=== PATIENT | female | born 1990 | race Caucasian/White ===

== ENCOUNTER 2020-02-12 09:09 | Inpatient (IN) | payer BC ==
[2020-02-18] MEDS ORDERED: Ibuprofen 800 MG TAB PO PRN (20:10)
[2020-02-18] MEDS ORDERED: Diphenoxylate HCl/Atropine Tablet PO PRN (20:10)
[2020-02-18] MEDS ORDERED: Lidocaine 1% (PF) 30 ML VIAL SC PRN (20:10)
[2020-02-18] MEDS ORDERED: Carboprost 250 MCG/ML AMP IM PRN (20:10)
[2020-02-18] MEDS ORDERED: HYDROcodone/Acetaminophen 5/325 mg Tablet PO PRN (20:10)
[2020-02-18] MEDS ORDERED: Ondansetron PF 4 MG/2 ML Vial IVP PRN (20:10)
[2020-02-18] MEDS ORDERED: Methylergonovine 0.2 MG/ML VIAL IM PRN (20:10)
[2020-02-18] MEDS ORDERED: Acetaminophen 500 MG TAB PO PRN (20:10)
[2020-02-18] MEDS ORDERED: NS / Oxytocin 40 units/1000ml 1,000 ML IV PRN (20:10)
[2020-02-18] MEDS ORDERED: Misoprostol 200 MCG TAB PR PRN (20:10)
[2020-02-18] MEDS ORDERED: Promethazine HCl 25 MG/ML VIAL IM PRN (20:10)
[2020-02-18] MEDS ORDERED: Butorphanol Tartrate 1 MG/ML VIAL SLOW IVP PRN (20:10)
[2020-02-18] MEDS ORDERED: hydrALAZINE 20 MG/ML VIAL SLOW IVP PRN (20:10)
[2020-02-18] MEDS ORDERED: NS w/ Oxytocin 10 units 500 ML IV SCH (20:15)
[2020-02-18 21:22] VITALS: BMI 36.8
[2020-02-18] MEDS: Lactated Ringer's 1,000 ML IV SCH (21:53)
[2020-02-18] MEDS: Misoprostol 100 MCG TAB VAG SCH (21:54)
[2020-02-18 22:02] LABS: Mean Corpuscular HGB CONC 35.1 g/dL (32.0-36.0); Mean Corpuscular Hemoglobin 32.4 pg (27.0-31.0); Mean Corpuscular Volume 92.2 fL (78.0-98.0); Mean Platelet Volume 10.6 fL (7.4-10.4); Platelet Count 147 thou/uL (130-400); RBC Distribution Width 12.6 % (11.5-14.5); Red Blood Cell (RBC) Count 4.02 mill/uL (4.20-5.40); White Blood Cell (WBC) Count 10.5 thou/uL (4.8-10.8)
[2020-02-18 22:40] LABS: HBSAg Index 0.15 S/CO (0-0.99); Hep B Surf Ag Non-Reactive S/CO (NonReactive); Syphilis Antibody Nonreactive (Nonreactive); Syphilis Antibody Index 0.03 S/CO (<1.00 Non-Reactive)
[2020-02-19] MEDS: Misoprostol 100 MCG TAB VAG SCH ×3 (01:43→18:47)
[2020-02-19] MEDS: Lactated Ringer's 1,000 ML IV SCH ×2 (01:43→12:21)
--- NOTE | 2020-02-19 08:27 | PDOC.LDHP ---
Labor and Delivery H&P Chief complaint: scheduled induction HPI: 29yo at 41w0d by LMP here for postdate IOL. Current gestational age (weeks): 41 Due date: 02/12/20 Dating criteria: last menstrual period Grav: 1 Para: 0 Current complications: none Abnormal US findings: No Past Medical History: denies Current medications: pre- vitamins Previous surgical history: none Allergies/Adverse Reactions: Allergies Allergy/AdvReac Type Severity Reaction Status Date / Time No Known Allergies Allergy Verified 02/18/20 21:11 Social history: none - Physical Exam Vital signs reviewed and normal: yes General: NAD Heart: RRR Lungs: CTAB Abdomen: gravid Extremeties: no edema FHT: category 1 [place] contractions every: 2-4min - Vaginal Exam cm dilated: 3 Effacement: 75% Station: -2 (arom clear) - OB Labs Blood type: A RH: positive Antibody Screen: negative HIV: negative RPR: negative HEPSAg: negative 1 hour GCT: negative GBS: negative Urine drug screen: negative Rubella: immune - Assessment L&D Assessment: medically indicated induction - Plan Plan: admit to L&D, cervical ripening, labor augmentation if indicated, informed consent obtained, anesthesia consult for pain management
[2020-02-19] MEDS ORDERED: NS / Oxytocin 40 units/1000ml 1,000 ML ONE (15:34)
[2020-02-19] MEDS ORDERED: Lidocaine 1% (PF) 30 ML VIAL ONE (15:34)
--- NOTE | 2020-02-19 19:00 | PDOC.OPDEL ---
OB Operative/Delivery Note Delivery Dr/Surgeon: Yakelin Assist: n/a Pre-Delivery Diagnosis: medically indicated induction Procedure/Post Delivery Dx: spontaneous vaginal delivery Weeks gestation: 41 Anesthesia: local - Findings A Sex: male - Additional Findings/Plan Placenta delivered: spontaneous Repaired Obstetrical Laceration: 2nd degree Estimated blood loss: 400cc Compilations/Other Findings: NC x 1 reduced Post delivery plan: routine recovery
[2020-02-19] MEDS ORDERED: Milk Of Magnesia 30 ML UDCUP PO PRN (19:27)
[2020-02-19] MEDS ORDERED: HYDROcodone/Acetaminophen 5/325 mg Tablet PO PRN ×2 (19:27)
[2020-02-19] MEDS ORDERED: NS / Oxytocin 40 units/1000ml 1,000 ML IV SCH (19:27)
[2020-02-19] MEDS ORDERED: Benzocaine-Menthol 82.5 ML CAN TOP PRN (19:27)
[2020-02-19] MEDS ORDERED: Lanolin Ointment 7 GM TUBE TOP PRN (19:27)
[2020-02-19] MEDS ORDERED: Preparation H Ointment 28 GM TUBE PR PRN (19:27)
[2020-02-19] MEDS ORDERED: Ondansetron PF 4 MG/2 ML Vial IVP PRN (19:27)
[2020-02-19] MEDS ORDERED: hydrALAZINE 20 MG/ML VIAL SLOW IVP PRN (19:27)
[2020-02-19] MEDS ORDERED: Bisacodyl 10 MG SUPP PR PRN (19:27)
[2020-02-19] MEDS ORDERED: diphenhydrAMINE 25 MG CAP PO PRN (19:27)
[2020-02-19] MEDS: Ibuprofen 800 MG TAB PO SCH (21:20)
[2020-02-19] MEDS: Docusate Calcium (SURFAK) 240 MG CAP PO SCH (21:20)
[2020-02-20] MEDS: Ibuprofen 800 MG TAB PO SCH ×3 (06:09→21:19)
[2020-02-20] MEDS: Ferrous Sulfate 325 MG TAB PO SCH ×2 (08:48→17:24)
[2020-02-20] MEDS ORDERED: Adacel (T-DAP) 0.5 ML SYRINGE IM ONE (09:00)
[2020-02-20] MEDS: Prenatal Vitamin 1 TAB PO SCH (10:59)
[2020-02-20] MEDS: Docusate Calcium (SURFAK) 240 MG CAP PO SCH ×2 (10:59→21:19)
--- NOTE | 2020-02-20 13:35 | PDOC.PP ---
Post Progress Note Post Day #: 1 PO intake tolerated: yes Flatus: yes Ambulation: yes Vital Signs (12 hours) Temp Pulse Resp BP 02/20/20 12:38 98.1 F 92 20 115/69 Weight Weight 215 lb - Physical Examination General: NAD Respiratory: non-labored breathing Abdominal: no distention, appropriately TTP Fundus firm & at: umb Neurological: no gross focal deficits Psychiatric: normal affect Result Diagrams: 02/18/20 21:45 Additional Labs: Post Labs Hep Bs Antigen Non-Reactive S/CO (NonReactive) 02/18/20 21:45 Blood Type A POSITIVE 02/18/20 23:28 - Assessment/Plan PPD1 s/p TSVD VSSAF Doing well, pain controlled. Rh pos RImm Cont PP care, home tomorrow
[2020-02-21] MEDS: Ibuprofen 800 MG TAB PO SCH (05:51)
[2020-02-21 08:08] VITALS: BP 128/70; TEMP 98.3
[2020-02-21] MEDS: Ferrous Sulfate 325 MG TAB PO SCH (08:14)
[2020-02-21] MEDS: Docusate Calcium (SURFAK) 240 MG CAP PO SCH (08:37)
[2020-02-21] MEDS: Prenatal Vitamin 1 TAB PO SCH (08:42)
== END 2020-02-21 13:55 | disposition home or self-care (01) | DRG 807 ==
LOC: EDSTATUS 11:22 → L&D 02-18 19:48 → 3SW 02-19 20:56
PROVIDERS: ADMIT Student in an Organized Health Care Education/Training Program; ATTEND Student in an Organized Health Care Education/Training Program
PROC: 10E0XZZ Delivery of Products of Conception, External Approach (ICD-10-PCS; principal; 2020-02-18)
PROC: 0KQM0ZZ Repair Perineum Muscle, Open Approach (ICD-10-PCS; 2020-02-18)
PROC: 3E033VJ Introduction of Other Hormone into Peripheral Vein, Percutaneous Approach (ICD-10-PCS; 2020-02-18)
DX: O48.0 Post-term pregnancy (principal); Z37.0 Single live birth; Z3A.41 41 weeks gestation of pregnancy; O70.1 Second degree perineal laceration during delivery
CPT/HCPCS: 36415; 85027; 86780; 86850; 86900; 86901; 87340; J2001; J2405; J2590

== ENCOUNTER 2020-02-14 11:08 | Outpatient (CLI) | payer BC, OTHER ==
[2020-02-15 14:49] LABS: SARS-CoV-2 MS2 Positive; SARS-CoV-2 N Gene Negative; SARS-CoV-2 S Gene Negative; SARS-CoV-2 by NAA Not Detected (NotDetected); SARS-CoV-2 orf1ab Negative
== END 2020-02-14 11:09 | disposition home or self-care (01) ==
LOC: LABSCS 11:08
PROVIDERS: ATTEND Student in an Organized Health Care Education/Training Program
DX: Z20.828 Contact with and (suspected) exposure to other viral communicable diseases (principal)
CPT/HCPCS: 87635; U0003